=== PATIENT | female | born 1985 | race Caucasian/White ===

== ENCOUNTER 2020-08-30 23:08 | Emergency (ER) | payer MEDICAID ==
[~2020-08-30] VITALS: Ht 160 cm; Wt 91.0 kg
[2020-08-31] MEDS ORDERED: KETOROLAC 30MG/ML VIAL IV STA (00:04)
[2020-08-31] MEDS ORDERED: SODIUM CHLORIDE 0.9% 1,000 ML IV ONE (00:15)
[2020-08-31 00:56] LABS: BASOPHILS % 0.4 % (0.0-2.0); EOSINOPHILS % 1.9 % (0.0-5.0); HEMATOCRIT. 38.6 % (36.0-48.0); HEMOGLOBIN. 12.7 g/dL (12.0-16.0); LYMPHOCYTES % 31.1 % (20.0-50.0); MEAN CORPUSCULAR HEMOGLOBIN 28.5 pg (28.0-32.0); MEAN CORPUSCULAR VOLUME 86.8 fL (81.0-99.0); MEAN PLATELET VOLUME 11.7 fl (7.4-10.4); MONOCYTES % 5.3 % (2.0-8.0); NEUTROPHILS % 61.3 % (40.0-76.0); PLATELET 200 x1000/uL (130-400); RED BLOOD CELL COUNT 4.45 mill/uL (4.2-5.4); RED CELL DISTRIBUTION WIDTH 13.2 % (11.6-14.6)
[2020-08-31 01:01] LABS: PROTHROMBIN TIME 10.9 sec (9.6-11.0)
[2020-08-31 01:07] LABS: CHLORIDE 107 mEq/L (98-107)
[2020-08-31 01:09] LABS: CLARITY URINE CLEAR (CLEAR); COLOR URINE YELLOW (YELLOW); KETONES URINE NEGATIVE (NEGATIVE); LEUKOCYTE ESTERASE URINE NEGATIVE (NEGATIVE); NITRITE URINE NEGATIVE (NEGATIVE); OCCULT BLOOD URINE NEGATIVE (NEGATIVE); PROTEIN URINE NEGATIVE (NEGATIVE); SPECIFIC GRAVITY URINE 1.026 (1.005-1.030); UROBILINOGEN URINE 0.2 E.U./dL (0.2-1.0)
[2020-08-31 01:11] LABS: HCG SCREEN NEGATIVE
[2020-08-31 01:12] LABS: UCG SCREEN NEGATIVE
[2020-08-31 01:22] LABS: *AMPHETAMINES SCREEN URINE NEGATIVE (NEGATIVE); *BARBITURATES SCREEN URINE NEGATIVE (NEGATIVE); *BENZODIAZEPINES SCREEN URINE NEGATIVE (NEGATIVE)
[2020-08-31 01:23] LABS: CANNABINOID URINE SCREEN NEGATIVE (NEGATIVE); METHADONE URINE SCREEN NEGATIVE (NEGATIVE); OPIATES URINE SCREEN NEGATIVE (NEGATIVE)
[2020-08-31 01:24] LABS: PHENCYCLIDINE URINE SCREEN NEGATIVE (NEGATIVE)
[2020-08-31 01:25] LABS: *COCAINE SCREEN URINE NEGATIVE (NEGATIVE)
[2020-08-31] MEDS ORDERED: METH-612 MT (03:30)
[2020-08-31] MEDS ORDERED: IBUP-2030 MT (03:30)
[2020-08-31 03:42] VITALS: BP 148/82
== END 2020-08-31 03:43 | disposition home or self-care (01) ==
LOC: ER 23:08
DX: M54.6 Pain in thoracic spine (principal); B94.8 Sequelae of other specified infectious and parasitic diseases; G89.29 Other chronic pain; M54.5 Low back pain; R03.0 Elevated blood-pressure reading, without diagnosis of hypertension
CPT/HCPCS: 36415; 71250; 74176; 80053; 80305; 81003; 81025; 83690; 84484; 84703; 85025; 85610; 93005; 96361; 96374; 99285; J1885; J7030; Z7610

== ENCOUNTER 2022-11-30 17:38 | Emergency (ER) | payer MEDICAID, OTHER ==
[~2022-11-30] VITALS: Ht 160 cm; Wt 91.0 kg
[~2022-11-30 17:38] MED LIST: IBUP-2030 MT; METH-653 MT
[2022-11-30] MEDS ORDERED: ACETAMINOPHEN 325MG TABLET PO STA (20:32)
[2022-11-30] MEDS ORDERED: IBUP-2029 MT (21:30)
[2022-11-30 21:42] VITALS: BP 120/72
== END 2022-11-30 21:45 | disposition home or self-care (01) ==
LOC: ER 17:38
DX: S06.0XAA Concussion with loss of consciousness status unknown, initial encounter (principal); S20.212A Contusion of left front wall of thorax, initial encounter; E78.00 Pure hypercholesterolemia, unspecified; W18.30XA Fall on same level, unspecified, initial encounter; Y93.89 Activity, other specified; Y92.89 Other specified places as the place of occurrence of the external cause; Y99.8 Other external cause status
CPT/HCPCS: 71045; 99284

== ENCOUNTER 2024-03-31 03:16 | Emergency (ER) | payer OTHER ==
[~2024-03-31] VITALS: Ht 160 cm; Wt 90.1 kg
[~2024-03-31 03:16] MED LIST changes: +IBUP-2029 MT
[2024-03-31 03:52] VITALS: BP 120/79; O2SAT 99
[2024-03-31 03:55] VITALS: O2SAT 97
[2024-03-31 04:59] LABS: BASOPHILS % 0.4 % (0.0-2.0); EOSINOPHILS % 0.9 % (0.0-5.0); HEMATOCRIT. 42.5 % (36.0-48.0); HEMOGLOBIN. 14.8 g/dL (12.0-16.0); LYMPHOCYTES % 14.3 % (20.0-50.0); MEAN CORPUSCULAR HEMOGLOBIN 29.8 pg (28.0-32.0); MEAN CORPUSCULAR HGB CONC 34.8 g/dL (31.0-37.0); MEAN CORPUSCULAR VOLUME 85.6 fL (81.0-99.0); MEAN PLATELET VOLUME 11.2 fl (7.4-10.4); MONOCYTES % 4.7 % (2.0-8.0); NEUTROPHILS % 79.7 % (40.0-76.0); PLATELET 226 x1000/uL (130-400); RED BLOOD CELL COUNT 4.96 mill/uL (4.2-5.4); RED CELL DISTRIBUTION WIDTH 13.3 % (11.6-14.6); WHITE BLOOD COUNT 13.7 x1000/uL (4.5-11.0)
[2024-03-31 05:26] LABS: CHLORIDE 102 mEq/L (98-107); POTASSIUM 3.6 mEq/L (3.5-5.1); SODIUM 137 mEq/L (136-145)
[2024-03-31 05:27] LABS: CARBON DIOXIDE 25 mEq/L (21-32)
[2024-03-31 05:28] LABS: CALCIUM 10.2 mg/dL (8.7-10.4)
[2024-03-31 05:32] LABS: CREATININE 0.7 mg/dL (0.6-1.0)
[2024-03-31 05:33] LABS: GLUCOSE 105 mg/dL (70-105); UREA NITROGEN BLOOD 11 mg/dL (9-23)
[2024-03-31 05:33] LABS: CLARITY URINE TURBID (CLEAR); COLOR URINE DARK YELLOW (YELLOW); GLUCOSE URINE NEGATIVE (NEGATIVE); KETONES URINE NEGATIVE (NEGATIVE); LEUKOCYTE ESTERASE URINE TRACE (NEGATIVE); NITRITE URINE NEGATIVE (NEGATIVE); OCCULT BLOOD URINE 2+ (NEGATIVE); PH URINE 5.5 (4.5-8.0); PROTEIN URINE 1+ (NEGATIVE); SPECIFIC GRAVITY URINE 1.025 (1.005-1.030); UROBILINOGEN URINE 0.2 E.U./dL (0.2-1.0)
[2024-03-31 05:34] LABS: ALBUMIN 5.2 g/dL (3.2-4.8)
[2024-03-31 05:35] LABS: ALANINE AMINOTRANSFERASE 24 IU/L (10-49); ASPARTATE AMINOTRANSFERASE 24 IU/L (<34); BILIRUBIN DIRECT 0.3 mg/dL (<=3.0); BILIRUBIN TOTAL 1.3 mg/dL (0.1-1.0)
[2024-03-31 06:52] LABS: SQUAMOUS EPITHELIAL CELL URINE FEW /lpf (RARE/1+)
[2024-03-31 06:53] LABS: BACTERIA URINE NONE SEEN; RBC URINE NONE SEEN /hpf (0-2); WBC URINE 0-2 /hpf (0-2)
[2024-03-31 06:54] LABS: AMORPHOUS SEDIMENT URINE 2+ /lpf
[2024-03-31 08:30] VITALS: PULSE 92; RESP 18
[2024-03-31 08:46] VITALS: TEMP 98.1
[2024-03-31] MEDS: ONDANSETRON 4MG ODT PO ONE (08:46)
[2024-03-31] MEDS: ACETAMINOPHEN 325MG TABLET PO ONE (08:46)
[2024-03-31] MEDS ORDERED: ONDA-239 PO (10:38)
== END 2024-03-31 10:59 | disposition home or self-care (01) ==
LOC: ER 03:23
DX: R11.2 Nausea with vomiting, unspecified (principal); R51.9 Headache, unspecified; E78.00 Pure hypercholesterolemia, unspecified; Z79.899 Other long term (current) drug therapy
CPT/HCPCS: 99283; 80076; 80048; 81003; 81025; 83690; 85025; 36415; Q0162

== ENCOUNTER 2024-12-26 04:23 | Emergency (ER) | payer OTHER ==
[~2024-12-26] VITALS: Ht 160 cm; Wt 88.0 kg
[~2024-12-26 04:23] MED LIST changes: +ONDA-239 PO
[2024-12-26 04:28] VITALS: O2SAT 98
[2024-12-26 04:33] VITALS: BP 133/82; PULSE 79; RESP 18; TEMP 36.7; O2SAT 98
[2024-12-26 04:48] VITALS: TEMP 98
[2024-12-26] MEDS: ACETAMINOPHEN 500MG TABLET PO ONE (04:48)
[2024-12-26] MEDS ORDERED: NAPR-1176 MT (05:26)
[2024-12-26] MEDS ORDERED: LIDO-53 TP (05:26)
== END 2024-12-26 05:49 | disposition home or self-care (01) ==
LOC: ER 04:23
DX: M79.604 Pain in right leg (principal); E78.00 Pure hypercholesterolemia, unspecified; Z79.899 Other long term (current) drug therapy
CPT/HCPCS: 93971; 99284

== ENCOUNTER 2025-01-13 06:43 | Emergency (ER) | payer MEDICAID, OTHER ==
[~2025-01-13] VITALS: Ht 160 cm; Wt 87.0 kg
[~2025-01-13 06:43] MED LIST changes: +LIDO-53 TP; +NAPR-1176 MT
[2025-01-13 06:52] VITALS: O2SAT 98
[2025-01-13 09:43] LABS: BASOPHILS % 0.7 % (0.0-2.0); EOSINOPHILS % 3.0 % (0.0-5.0); HEMATOCRIT. 39.1 % (36.0-48.0); HEMOGLOBIN. 13.0 g/dL (12.0-16.0); LYMPHOCYTES % 22.7 % (20.0-50.0); MEAN PLATELET VOLUME 11.3 fl (7.4-10.4); MONOCYTES % 5.6 % (2.0-8.0); NEUTROPHILS % 68.0 % (40.0-76.0); PLATELET 189 x1000/uL (130-400); RED BLOOD CELL COUNT 4.60 mill/uL (4.2-5.4); RED CELL DISTRIBUTION WIDTH 13.7 % (11.6-14.6)
[2025-01-13 10:00] LABS: CREATININE 0.6 mg/dL (0.6-1.0); UREA NITROGEN BLOOD 12 mg/dL (9-23)
[2025-01-13 10:01] LABS: TROPONIN I HIGH SENSITIVITY 7 ng/L (3.0-34)
[2025-01-13] MEDS ORDERED: IBUP-2030 MT (10:36)
[2025-01-13 10:40] VITALS: BP 128/68; PULSE 76; RESP 18; TEMP 36.9; O2SAT 99
== END 2025-01-13 10:41 | disposition home or self-care (01) ==
LOC: ER 06:43
DX: R07.89 Other chest pain (principal); E78.00 Pure hypercholesterolemia, unspecified; Z86.73 Personal history of transient ischemic attack (TIA), and cerebral infarction without residual deficits; Z79.1 Long term (current) use of non-steroidal anti-inflammatories (NSAID); Z79.899 Other long term (current) drug therapy
CPT/HCPCS: 36415; 71045; 76641; 80048; 84484; 85025; 85379; 93005; 99285